=== PATIENT | male | born 2000 | race Two or more races ===

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

== ENCOUNTER 2024-04-01 21:22 | Emergency (ER) | payer MEDICAID, OTHER ==
[~2024-04-01] VITALS: Ht 175.3 cm; Wt 93.6 kg
--- NOTE | 2024-04-01 21:38 | ED.PDOC ---
History of Present Illness HPI Comments This is a 23-year-old male who comes in with chief complaint of chest pain. The patient states that the symptoms started approximately 30 minutes prior to arrival while he was smoking a wax pen. The patient states that the pain is substernal and radiates to the right side of the chest. The pain is pressure- like and associated with some shortness for breath. There has been no nausea or vomiting but the patient was also complaining of some dizziness. Upon arrival he was somewhat pale and tachycardic. He states that he feels like he is going to pass out. Chief Complaint: Chest Pain Time Seen by MD: 21:30 Primary Care Provider: VIVIANE Reviewed Notes: Nurses Notes, Medications, Allergies (No allergies to medicati ons) Allergies: Coded Allergies: NO KNOWN ALLERGIES (Unverified , 12/17/18) Information Source: Patient Mode of Arrival: Ambulatory Severity: Moderate Timing: Minutes Duration: Since onset Prehospital treatment: None Location: Substernal chest pain that radiates towards the right Associated signs and symptoms Pressure-like Past Medical History PAST MEDICAL HISTORY: Denies Family History Family History: Reviewed,noncontributory to illness, No family hx of Cancer, No family hx of DM, No family hx of Heart [place], No family hx of HTN, No family hx ofKidney [place], No family hx of Liver [place], No family hx of Lung [place], No family hx of Stroke Social History Smoker: Non-Smoker Alcohol: Occasionally Drugs: Marijuana Lives In: Home Constitutional: denies: chills, diaphoresis, fatigue, fever, malaise, sweats, weakness, others EENTM: denies: blurred vision, double vision, ear bleeding, ear discharge, ear drainage, ear pain, ear ringing, eye pain, eye redness, hearing loss, mouth pain, mouth swelling, nasal discharge, nose bleeding, nose congestion, nose pain, photophobia, tearing, throat pain, throat swelling, voice changes, others Respiratory: reports: shortness of breath; denies: cough, hemoptysis, or thopnea, SOB at rest, SOB with excertion, stridor, wheezing, others Cardiovascular: reports: chest pain; denies: dizzy spells, diaphoresis, Dyspnea on exertion, edema, irregular heart beat, left arm pain, lightheadedness, palpitations, PND, syncope, others Gastrointestinal: denies: abdomen distended, abdominal pain, blood streaked bowels, constipated, diarrhea, dysphagia, difficulty swallowing, hematemesis, melena, nausea, poor appetite, poor fluid intake, rectal bleeding, rectal pain, vomiting, others Genitourinary: denies: burning, dysuria, flank pain, frequency, hematuria, incontinence, penile discharge, penile sore, pain, testicle pain, testicle swelling, urgency, others Neurological: reports: dizziness; denies: fainting, headache, left sided numbness, left sided weakness, numbness, paresthesia, pre-existing deficit, right sided numbness, right sided weakness, seizure, speech problems, tingling, tremors, weakness, others Musculoskeletal: denies: back pain, gout, joint pain, joint swelling, muscle pain, muscle stiffness, neck pain, others Integumetry: denies: bruises, change in color, change in hair/nails, dryness, laceration, lesions, lumps, rash, wounds, others Allergic/Immunocompromised: denies: Difficulty Healing, Frequent Infections, Hives, Itching, others Hematologic/Lymphatic: denies: anemia, blood clots, easy bleeding, easy bruising, swollen glands, others Endocrine: denies: excessive hunger, excessive sweating, excessive thirst, excessive urination, flushing, intolerance to cold, intolerance to heat, unexplained weight gain, unexplained weight loss, others Psychiatric: denies: anxiety, bipolar disorder, depression, hopeless, panic disorder, schizophrenia, sleepless, suicidal, others Physical Exam General Appearance: Mild Distress HEENT: Normal ENT Inspection, Pharynx Normal, TMs Normal Neck: Full Range of Motion, Non-Tender, Normal, Normal Inspection Respiratory: Chest Non-Tender, Lungs Clear, No Accessory Muscle Use, No Respiratory Distress, Normal Breath Sounds Cardiovascular: No Edema, No JVD, No Murmur, No Gallop, Tachycardia Breast Exam: Deferred Gastrointestinal: No Organomegaly, Non Tender, No Pulsatile Mass, Normal Bowel Sounds, Soft Genitalia: Deferred Pelvic: Deferred Rectal: Deferred Extremities: No calf tenderness, Normal capillary refill, Normal inspection, Normal range of motion, Non-tender, No pedal edema Musculoskeletal : Apperance: Normal Neurologic: Alert, prosthetic aide II-XII nml as Tested, No Motor Deficits, Normal Affect, Normal Mood, No Sensory Deficits Cerebellar Function: Normal Reflexes: Normal Skin: Dry, Pallor, Warm Lymphatic: No Adenopathy Was a procedure done? Was a procedure done?: No EKG EKG : Pulse Rate (adult): 139 [place]: Normal Cardiac Rhythm: ST Hypertrophy: RVH Differential Dx Considerations may include: Palpitations, SVT, substance abuse, NE, ACS X-Ray, Labs, Meds, VS Vital Signs Date Time Temp Pulse Resp B/P (MAP) Pulse Ox O2 Delivery O2 Flow Rate FiO2 04/01/24 21:38 139 04/01/24 21:27 139 04/01/24 21:25 98.1 138 16 148/105 (119) 98 Lab Test 04/01/24 21:36 Range/Units White Blood Count 10.7 4.4-10.8 10^3/uL Red Blood Count 5.69 4.5-5.90 10^6/uL Hemoglobin 17.3 13.5-17.5 g/dL Hematocrit 49.5 41.0-53.0 % Mean Corpuscular Volume 87.0 80.0-100.0 fL Mean Corpuscular Hemoglobin 30.4 28.0-32.0 pg Mean Corpuscular Hemoglobin Concent 35.0 32.0-36.0 g/dL Red Cell Distribution Width 13.2 11.8-14.3 % Platelet Count 366 140-450 10^3/uL Mean Platelet Volume 8.5 6.9-10.8 fL Neutrophils (%) (Auto) 49.1 37.0-80.0 % Lymphocytes (%) (Auto) 39.1 10.0-50.0 % Monocytes (%) (Auto) 9.2 0.0-12.0 % Eosinophils (%) (Auto) 1.5 0.0-7.0 % Basophils (%) (Auto) 1.1 0.0-2.0 % Neutrophils # (Auto) 5.3 1.6-8.6 10 ^3/uL Lymphocytes # (Auto) 4.2 0.4-5.4 10 ^3/uL Monocytes # (Auto) 1.0 0-1.3 10 ^3/uL Eosinophils # (Auto) 0.2 0-0.8 10 ^3/uL Basophils # (Auto) 0.1 0-0.2 10 ^3/uL Nucleated Red Blood Cells 0.3 % Sodium Level 137 136-145 mmol/L Potassium Level 3.6 3.5-5.1 mmol/L Chloride Level 99 98-107 mmol/L Carbon Dioxide Level 26 20-31 mmol/L Anion Gap 12 5-15 Blood Urea Nitrogen 12 9-23 mg/dL Creatinine 1.05 0.700-1.30 mg/dL Glomerular Filtration Rate Calc 102 >90 mL/min BUN/Creatinine Ratio 11.4 10.0-20.0 Serum Glucose 145 H 74-106 mg/dL Calcium Level 10.9 H 8.7-10.4 mg/dL Troponin I High Sensitivity < 3 L </=54 ng/L IV Hep-Lock was established The patient was being given 1 L bolus of normal saline The chest x-ray is negative Troponin level is negative The CBC and chemistry panel are negative The patient was awaiting the treatments with the normal saline for the t achycardia The patient will be signed out to Dr. Archer Images Reviewed?: Images reviewed and evaluated by me Time of 1ST Reevaluation: 21:38 Reevaluation 1ST: Unchanged Patient Education/Counseling: Diagnosis, Treatment, Prognosis Family Education/Counseling: No Family Present Departure 1 Departure Time of Disposition: 22:11 Impression: Primary Impression: Substance abuse Additional Impressions: Palpitations Acute chest pain Disposition: 30 STILL A PATIENT Condition: Fair Critical Care Note Critical Care Time?: No Stability Stability form required: No Heart Score Heart Score: Heart Score Response (Comments) Value History Slightly Suspicious 0 EKG Normal 0 Age <45 0 Risk Factors 1 or 2 risk factors 1 Troponin Normal limit 0 Total 1 HERMINIA YEAGER MD Apr 01, 2024 21:38
[2024-04-01] MEDS ORDERED: SODIUM CHLORIDE 0.9% 1,000 ML IV ONE (21:45)
[2024-04-01] MEDS ORDERED: ASPirin 81 mg TAB PO ONE (21:45)
[2024-04-01] MEDS ORDERED: SODIUM CHLORIDE 0.9% 1,000 ML IVB ONE (21:45)
[2024-04-01 21:48] LABS: Basophils # (auto) 0.1 10 ^3/uL (0-0.2); Basophils % (auto) 1.1 % (0.0-2.0); Eosinophils # (auto) 0.2 10 ^3/uL (0-0.8); Eosinophils % (auto) 1.5 % (0.0-7.0); Hematocrit 49.5 % (41.0-53.0); Hemoglobin 17.3 g/dL (13.5-17.5); Lymphocytes # (auto) 4.2 10 ^3/uL (0.4-5.4); Lymphocytes % (auto) 39.1 % (10.0-50.0); Mean Corpuscular Hemoglobin 30.4 pg (28.0-32.0); Monocytes % (auto) 9.2 % (0.0-12.0); Neutrophils # (auto) 5.3 10 ^3/uL (1.6-8.6); Neutrophils % (auto) 49.1 % (37.0-80.0); Nucleated Red Blood Cells % 0.3 %; Platelet Count (auto) 366 10^3/uL (140-450); Red Blood Cells 5.69 10^6/uL (4.5-5.90); Red Cell Distribution Width 13.2 % (11.8-14.3); White Blood Cell 10.7 10^3/uL (4.4-10.8)
[2024-04-01 21:55] LABS: Chloride 99 mmol/L (98-107); Potassium 3.6 mmol/L (3.5-5.1); Sodium 137 mmol/L (136-145)
[2024-04-01 21:56] LABS: Anion Gap 12 (5-15); Carbon Dioxide 26 mmol/L (20-31)
[2024-04-01 22:02] LABS: BUN/Creatinine Ratio 11.4 (10.0-20.0); Blood Urea Nitrogen 12 mg/dL (9-23)
[2024-04-01 22:05] LABS: Calcium 10.9 mg/dL (8.7-10.4); Glucose 145 mg/dL (74-106)
--- NOTE | 2024-04-01 22:05 | DVH ---
CHEST RADIOGRAPH Indication: cp Technique: Frontal and lateral view of the chest was obtained Comparison: None FINDINGS: Lines and Tubes: None Lungs: Clear Pleura: No effusion. No pneumothorax. Cardiomediastinal contours: Unremarkable Bones: Unremarkable IMPRESSION: 1. No evidence of acute disease.
[2024-04-01] MEDS ORDERED: ONDANSETRON HCL 4 MG/2 ML VIAL IV ONE (22:15)
[2024-04-02 01:16] VITALS: BP 120/68; PULSE 113; RESP 12; TEMP 98.2; O2SAT 97
[2024-04-02 02:44] LABS: Amphetamine Screen, Urine Pos (NEGATIVE); Barbiturate Scree,Urine Neg (NEGATIVE); Benzodiazephine Screen, Urine Neg (NEGATIVE); Cannabinoid Screen, Urine Pos (NEGATIVE); Cocaine Screen, Urine Neg (NEGATIVE); Opiate Scree,Urine Neg (NEGATIVE); Phencyclidine Screen, Urine Neg (NEGATIVE)
--- NOTE | 2024-04-03 12:37 | ECG ---
[facility] Test Date: 2024-04-01 Test Time: 21:27:07 Pat Name: USMAN SILVA Department: ER Room: Gender: M [place] Counselor: SUSY : 2000 Requested By: MILLY SPAULDING Order Number: [id number] Reading MD: Stanley Berman Measurements Intervals [place] Rate: 139 P: 68 [place]: 122 QRS: 130 QRSD: 110 T: -1 QT: 315 QTc: 479 Interpretive Statements Sinus tachycardia Consider right ventricular hypertrophy Consider inferior infarct Electronically Signed On 04-06-2024 8:19:58 PST by Stanley Berman Please click the below link to view image of tracing.
== END 2024-04-02 02:48 | disposition left against medical advice (07) ==
LOC: ER 21:22
DX: R07.89 Other chest pain (principal); R00.2 Palpitations; F19.10 Other psychoactive substance abuse, uncomplicated; R42 Dizziness and giddiness
CPT/HCPCS: 36415; 71046; 80048; 80307; 84484; 85025; 93005